=== PATIENT | male | born 1980 | race Asian ===

== ENCOUNTER 2016-05-15 08:17 | Emergency (ER) | payer OTHER ==
[~2016-05-15] VITALS: Ht 167.6 cm; Wt 90.7 kg
== END 2016-05-15 09:53 | disposition home or self-care (01) ==
LOC: ED 08:17
PROC: 0HQGXZZ Repair Left Hand Skin, External Approach (ICD-10-PCS; principal; 2016-05-15)
PROC: 2W3KX1Z Immobilization of Left Finger using Splint (ICD-10-PCS; 2016-05-15)
DX: S61.217A Laceration without foreign body of left little finger without damage to nail, initial encounter (principal); W45.8XXA Other foreign body or object entering through skin, initial encounter; Y92.149 Unspecified place in prison as the place of occurrence of the external cause
CPT/HCPCS: 99283; J2001; J7040